=== PATIENT | female | born 1970 | race Hispanic/Latino ===

== ENCOUNTER 2018-10-18 13:43 | Emergency (ER) | payer SELFPAY ==
[~2018-10-18] VITALS: Ht 157.5 cm; Wt 90.7 kg
[2018-10-18 14:08] LABS: BASOPHILS % 0.5 % (0.0-1.0); EOSINOPHILS % 0.5 % (0.0-6.0); HEMATOCRIT 38.1 % (34.2-44.1); LYMPHOCYTES # (AUTO) 1.3 (1.0-3.2); LYMPHOCYTES % 15.5 % (18.0-39.1); MEAN CORPUSCULAR HEMOGLOBIN 24.1 pg (28-32); MEAN CORPUSCULAR HGB CONC 31.5 g/dL (31-35); MEAN CORPUSCULAR VOLUME 76.5 fL (81-99); MONOCYTES # (AUTO) 0.4 (0.2-0.8); MONOCYTES % 4.3 % (4.4-11.3); NEUTROPHILS # (AUTO) 6.4 (2.1-6.9); NEUTROPHILS % 78.7 % (38.7-80.0); PLATELET COUNT 391 x10e3/uL (140-360); RED BLOOD COUNT 4.98 x10e6/uL (3.6-5.1); RED CELL DISTRIBUTION WIDTH 16.7 % (11.7-14.4)
[2018-10-18] MEDS ORDERED: LOSARTAN POTASS25 MG PO (14:11)
[2018-10-18] MEDS ORDERED: HYDROCHLOROTHIA25 MG PO (14:11)
[2018-10-18 14:19] LABS: INR 0.93
[2018-10-18] MEDS ORDERED: SODIUM CHLORIDE 0.9% 1000ML 1,000 ML IV STA (14:19)
[2018-10-18 14:20] LABS: PARTIAL THROMBOPLASTIN TIME 29.7 seconds (23.8-35.5)
[2018-10-18 14:25] LABS: ALANINE AMINOTRANSFERASE 10 IU/L (0-55); ALBUMIN 3.9 g/dL (3.5-5.0); ALBUMIN/GLOBULIN RATIO 0.9 (0.8-2.0); ALKALINE PHOSPHATASE 95 IU/L (40-150); ANION GAP 14.6 mmol/L (8-16); BLOOD UREA NITROGEN 7 mg/dL (7-26); BUN/CREATININE RATIO 9 (6-25); CALCIUM 9.8 mg/dL (8.4-10.2); CARBON DIOXIDE 25 mmol/L (22-29); CHLORIDE 101 mmol/L (98-107); CREATINE KINASE 54 IU/L (29-168); CREATININE, SERUM 0.75 mg/dL (0.57-1.11); EST GLOMERULAR FILTRATION RATE > 60 ML/MIN (60-); GLUCOSE 131 mg/dL (74-118); MAGNESIUM 2.1 MG/DL (1.3-2.1); POTASSIUM 3.6 mmol/L (3.5-5.1); SODIUM 137 mmol/L (136-145)
--- NOTE | 2018-10-18 14:49 | Diagnostic Imaging Report ---
Examination: Single AP view of the chest. COMPARISON: None. INDICATION: Emesis DISCUSSION: Lines/tubes: None. Lungs: The lungs are well inflated and clear. No evidence of pneumonia or pulmonary edema. Pleura: No pleural effusion or pneumothorax. Heart and mediastinum: The heart and the mediastinum are unremarkable. Bones and soft tissues: No acute bony abnormalities. IMPRESSION: 1. No acute cardiopulmonary abnormalities. Signed by: Dr. Jna Way M.D. on 10/18/2018 2:46 PM
--- NOTE | 2018-10-18 14:50 | Diagnostic Imaging Report ---
Exam: Head CT without contrast History: Dizziness, hypertension Comparison studies: None Technique: Axial images were obtained from the skull base to the vertex. Coronal and sagittal images reconstructed from the axial data. Dose modulation, iterative reconstruction, and/or weight based adjustment of the mA/kV was utilized to reduce the radiation dose to as low as reasonably achievable. Radiation dose: Total DLP: 921 mGy*cm. Estimated effective dose: DLP x 0.015 Intravenous contrast: None Findings: Scalp: No abnormalities. Bones: No fractures, blastic or lytic lesions. Brain sulci: Appropriate for age. Ventricles: Normal in size and configuration. No hydrocephalus. Extra-axial spaces: No masses, no fluid collection. Parenchyma: No abnormal densities. No masses, acute hemorrhage, acute or chronic vascular insults. Sellar/suprasellar region: Mostly CSF filled sella, a nonspecific finding which may be of no clinical significance in the absence of symptoms to suggest idiopathic intracranial hypertension or abnormalities referrable to the hypothalamic-pituitary axis. Craniocervical junction: Patent foramen magnum. No Chiari one malformation. IMPRESSION: 1. No acute intracranial abnormalities. 2. Incidental mostly CSF filled sella, a nonspecific finding as described. Signed by: Dr. Juanito Nixon M.D. on 10/18/2018 2:47 PM
[2018-10-18] MEDS ORDERED: ONDANSETRON HCL INJ 2MG/ML 2ML 2 MG/ML VIAL IV ONE (15:00)
[2018-10-18] MEDS ORDERED: MECLIZINE HCL 12.5 MG TAB PO ONE (15:00)
[2018-10-18] MEDS ORDERED: CLONIDINE HCL 0.1 MG TAB PO ONE (15:00)
[2018-10-18 16:56] LABS: BILIRUBIN,URINE NEGATIVE (NEGATIVE); CLARITY,URINE HAZY (CLEAR); COLOR,URINE YELLOW (YELLOW); KETONES,URINE NEGATIVE (NEGATIVE); LEUKOCYTE ESTERASE ,URINE NEGATIVE (NEGATIVE); NITRITE,URINE NEGATIVE (NEGATIVE); PROTEIN,URINE DIPSTICK NEGATIVE (NEGATIVE); URINE UROBILINOGEN 0.2 mg/dL (0.2 - 1)
[2018-10-18 16:57] LABS: BACTERIA,URINE MANY /HPF; EPITHELIAL CELLS,URINE MODERATE /LPF; PREGNANCY TEST, URINE NEGATIVE (NEGATIVE); RBC,URINE 0-5 /HPF (0-5)
[2018-10-18 18:17] VITALS: BP 110/81
== END 2018-10-18 18:27 | disposition home or self-care (01) ==
LOC: ER 13:43
DX: R42 Dizziness and giddiness (principal); R11.2 Nausea with vomiting, unspecified; H81.11 Benign paroxysmal vertigo, right ear; J01.00 Acute maxillary sinusitis, unspecified
CPT/HCPCS: 36415; 70450; 71045; 80053; 81001; 81025; 82550; 82553; 83735; 83880; 84484; 85025; 85610; 85730; 87086; 87186; 93005; 99284; J2405; J7030; J8597

== ENCOUNTER 2019-09-10 19:45 | Emergency (ER) | payer SELFPAY ==
[~2019-09-10] VITALS: Ht 157.5 cm; Wt 90.7 kg
[~2019-09-10 19:45] MED LIST: HYDROCHLOROTHIA25 MG PO; LOSARTAN POTASS25 MG PO
--- OUTSIDE RECORDS SUMMARY | 2019-09-10 19:48 | XMS REPORT ---
Author [facility] Address Unknown Phone Unavailable Care Team Providers Care Tracer Clerk Name Role Phone Jerry KASPER Unavailable Unavailable Problems This patient has no known problems. Allergies, Adverse Reactions, Alerts This patient has no known allergies or adverse reactions. Medications This patient has no known medications. Results Test Description Test Time Test Comments Text Results Atomic Results Result Comments CT BRAIN WO 2018-10-18 14:43:00 [facility] [address] [address] Patient Name: LIZETH MONGE MR #: [id number] : 1970 Age/Sex: 48/F Req #: [id number] [facility] Physician: Ordered by: JUSTIN KASPER MD Report #: [id number] Location: ER Room/Bed: Procedure: [id number] CT/CT BRAIN WO Exam Date: Exam Time: REPORT STATUS: Signed Exam: Head CT without contrast History: Dizziness, hypertension Comparison studies: None Technique: Axial images were obtained from the skull base to the vertex. Coronal and sagittal images reconstructed from the axial data. Dose modulation, iterative reconstruction, and/or weight based adjustment of the mA/kV was utilized to reduce the radiation dose to as low as reasonably achievable. Radiation dose: Total DLP: 921 mGy*cm. Estimated ef fective dose: DLP x 0.015 Intravenous contrast: None Findings: Scalp: No abnormalities. Bones: No fractures, blastic or lytic lesions. Brain sulci: Appropriate for age. Ventricles: Normal in size and configuration. No hydrocephalus. Extra-axial spaces: No masses, no fluid collection. Parenchyma: No abnormal densities. No masses, acute hemorrhage, acute or chronic vascular insults. Sellar/suprasellar region: Mostly CSF filled sella, a nonspecific finding which may be of no clinical significance in the absence of symptoms to suggest idiopathic intracranial hypertension or abnormalities referrable to the hypothalamic-pituitary axis. Craniocervical junction: Patent foramen magnum. No Chiari one malformation. IMPRESSION: 1. No acute intracranial abnormalities. 2. Incidental mostly CSF filled sella, a nonspecific finding as described. Signed by: Dr. Azra Nixon M.D. on 10/18/2018 2:47 PM Dictated By: AZRA NIXON MD 46 Transcribed By: NEHAL on 10/18/181446 COPY TO: JUSTNI KASPER MD CHEST SINGLE (PORTABLE) 2018-10-18 14:40:00 [place] [address] Patient Name: LIZETH MONGE MR #: [id number] : 1970 Age/Sex: 48/F Req #: [id number] Adm Physician: Ordered by: JUSTIN KASPER MD Report #: [id number] Location: ER Room/Bed: Procedure: [id number] DX/CHEST SINGLE (PORTABLE) Exam Date: 10/18/18 Exam Time: 1435 REPORT STATUS: Signed Examination: Single AP view of the chest. C OMPARISON: None. INDICATION: Emesis DISCUSSION: Lines/tubes: None. Lungs: The lungs are well inflated and clear. No evidence of pneumonia or pulmonary edema. Pleura: No pleural effusion or pneumothorax. Heart and mediastinum: The heart and the mediastinum are unremarkable. Bones and soft tissues: No acute bony abnormalities. IMPRESSION: 1. No acute cardiopulmonary abnormalities. Signed by: Dr. Kirit Hester M.D. on 10/18/2018 2:46 PM Dictated By: KIRIT HESTER MD 1446 Transcribed By: NEHAL on 10/18/18 1446 COPY TO: JUSTIN KASPER MD
[2019-09-10 20:22] VITALS: BP 158/97
[2019-09-10] MEDS ORDERED: IPRATROPIUM BROMIDE 0.02% 2.5 ML NEB NEB STA (20:52)
[2019-09-10] MEDS ORDERED: ALBUTEROL SULF 0.083% NEB SOLN 3 ML NEB NEB STA (20:52)
--- NOTE | 2019-09-10 20:57 | Diagnostic Imaging Report ---
EXAMINATION: CHEST 2 VIEWS INDICATION: ^cough on and off for 2 months ^[id number] ^2029 COMPARISON: Chest x-ray 10/18/2018 FINDINGS: PA and lateral views TUBES and LINES: None. LUNGS: Lungs are well inflated. There is no evidence of pneumonia or pulmonary edema. PLEURA: No pleural effusion or pneumothorax. HEART AND MEDIASTINUM: The cardiomediastinal silhouette is unremarkable.. BONES AND SOFT TISSUES: No focal osseous lesions. Soft tissues are unremarkable. UPPER ABDOMEN: Unremarkable. IMPRESSION: No acute thoracic abnormality. Signed by: Dr. Neil Loredo MD on 09/10/2019 8:54 PM
[2019-09-10] MEDS ORDERED: FAMOTIDINE 20 MG TAB PO ONE (21:00)
[2019-09-10] MEDS ORDERED: ACETAMINOPHEN/CODEINE ELIX 120-12 MG/5 ML UDC NG ONE (21:00)
[2019-09-10] MEDS ORDERED: DEXAMETHASONE SOD PHOS 10 MG/1 ML VIAL IM ONE (21:00)
== END 2019-09-10 21:55 | disposition home or self-care (01) ==
LOC: ER 19:45
DX: R05 Cough (principal); J42 Unspecified chronic bronchitis
CPT/HCPCS: 71046; 99283; J1100

== ENCOUNTER 2022-12-06 20:05 | Emergency (ER) | payer OTHER ==
[~2022-12-06] VITALS: Ht 157.5 cm; Wt 90.7 kg
[2022-12-06] MEDS ORDERED: ONDANSETRON HCL INJ 2MG/ML 2ML 2 MG/ML VIAL IV STA (20:31)
[2022-12-06] MEDS ORDERED: KETOROLAC TROMETHAMINE 30 MG/ML VIAL IV STA (20:31)
[2022-12-06] MEDS ORDERED: SODIUM CHLORIDE 0.9% 1000ML 1,000 ML IV ONE (20:45)
[2022-12-06 21:12] LABS: BASOPHILS % 0.1 % (0.0-1.0); EOSINOPHILS # (AUTO) 0.1 (0.0-0.4); EOSINOPHILS % 1.1 % (0.0-6.0); HEMATOCRIT 38.2 % (34.2-44.1); HEMOGLOBIN 11.9 g/dL (12.0-16.0); LYMPHOCYTES # (AUTO) 1.5 (1.0-3.2); LYMPHOCYTES % 20.3 % (18.0-39.1); MEAN CORPUSCULAR HEMOGLOBIN 24.5 pg (28-32); MEAN CORPUSCULAR HGB CONC 31.2 g/dL (31-35); MEAN CORPUSCULAR VOLUME 78.6 fL (81-99); MONOCYTES # (AUTO) 0.6 (0.2-0.8); MONOCYTES % 7.7 % (4.4-11.3); NEUTROPHILS # (AUTO) 5.3 (2.1-6.9); NEUTROPHILS % 70.3 % (38.7-80.0); PLATELET COUNT 285 x10e3/uL (140-360); RED BLOOD COUNT 4.86 x10e6/uL (3.6-5.1); RED CELL DISTRIBUTION WIDTH 18.2 % (11.7-14.4)
[2022-12-06 21:14] LABS: CLARITY,URINE SL CLOUDY (CLEAR); COLOR,URINE YELLOW (YELLOW); KETONES,URINE NEGATIVE (NEGATIVE); LEUKOCYTE ESTERASE ,URINE NEGATIVE (NEGATIVE); NITRITE,URINE NEGATIVE (NEGATIVE); PROTEIN,URINE DIPSTICK TRACE (NEGATIVE); URINE UROBILINOGEN 0.2 mg/dL (0.2 - 1)
[2022-12-06 21:27] LABS: BACTERIA,URINE MODERATE /HPF; EPITHELIAL CELLS,URINE MANY /LPF; RBC,URINE 0-5 /HPF (0-5); WBC,URINE (MAN) 0-5 /HPF (0-5)
[2022-12-06 21:31] LABS: ALBUMIN 4.1 g/dL (3.5-5.0); ALBUMIN/GLOBULIN RATIO 0.9 (0.8-2.0); ANION GAP 14.1 mmol/L (8-16); CALCIUM 9.3 mg/dL (8.4-10.2); CREATININE, SERUM 0.8 mg/dL (0.57-1.11); POTASSIUM 3.1 mmol/L (3.5-5.1)
[2022-12-06] MEDS ORDERED: IOPAMIDOL 370 MG/ML 100 ML INFUS..BTL INJ ONE (21:41)
[2022-12-06 22:32] VITALS: O2SAT 95
[2022-12-06] MEDS ORDERED: POTASSIUM CHLORIDE 20 MEQ TAB CR PO STA (22:57)
[2022-12-06] MEDS ORDERED: CIPRO500 MG PO (23:02)
[2022-12-06] MEDS ORDERED: METRONIDAZOLE500 MG PO (23:02)
[2022-12-06] MEDS ORDERED: DICYCLOMINE HCL20 MG PO (23:02)
[2022-12-06] MEDS ORDERED: ONDANSETRON ODT4 MG PO (23:02)
== END 2022-12-06 23:14 | disposition home or self-care (01) ==
LOC: ER 20:10
DX: R50.9 Fever, unspecified (principal); K52.9 Noninfective gastroenteritis and colitis, unspecified; R11.2 Nausea with vomiting, unspecified; I10 Essential (primary) hypertension; Z87.442 Personal history of urinary calculi
CPT/HCPCS: 36415; 74177; 80053; 81001; 81025; 83690; 85025; 99284; J1885; J2405; J7030; Q9967